=== PATIENT | male | born 1965 | race Caucasian/White ===

== ENCOUNTER 2016-05-04 17:32 | Emergency (ER) | payer MEDICARE ==
[~2016-05-04 17:32] MED LIST: AMLO2.5T PO; CLIN1CAP6 PO; HYDR-3534 PO; LANTUS2P SQ; LITH450T PO; METO25TA3 PO; NOVOLOGP2 SQ; OMEP40CA2 PO; PROZ20CA11 PO; RISP2TAB SL; SPIR25TA PO
[2016-05-04 17:34] VITALS: BP 146/83; PULSE 97; RESP 14; TEMP 99; O2SAT 98
[2016-05-04 17:58] VITALS: TEMP 100.3
[2016-05-05] MEDS ORDERED: LYRI75CA PO (08:11)
[2016-05-05] MEDS ORDERED: ADDE30TA PO (08:15)
[2016-05-05] MEDS ORDERED: FURO40TA PO (08:18)
== END 2016-05-04 22:22 | disposition left against medical advice (07) ==
LOC: NED 17:32
DX: M79.671 Pain in right foot (principal)
CPT/HCPCS: 99281

== ENCOUNTER 2016-05-05 06:12 | Inpatient (IN) | payer MEDICARE ==
[~2016-05-05] VITALS: Ht 177.8 cm; Wt 108.4 kg
[2016-05-05 06:13] VITALS: BP 128/83; PULSE 78; RESP 16; TEMP 97.7; O2SAT 96
[2016-05-05] MEDS ORDERED: LYRI75CA PO (08:11)
[2016-05-05] MEDS ORDERED: ADDE30TA PO (08:15)
[2016-05-05] MEDS ORDERED: FURO40TA PO (08:18)
[2016-05-05 08:25] VITALS: BP 113/75; PULSE 98; RESP 16
[2016-05-05] MEDS ORDERED: PIPERACIL-TAZO 4.5 GM PREMIX 100 ML IV STA (08:26)
[2016-05-05] MEDS ORDERED: SODIUM CHLOR 0.9% 1000 ML INJ 1,000 ML IV ONE (08:26)
[2016-05-05] MEDS ORDERED: VANCOMYCIN INJ 1,000 MG in SODIUM CHLOR 0.9% 250 ML INJ 250 ML IV STA (08:26)
[2016-05-05] MEDS ORDERED: IBUPROFEN 600 MG TAB PO ONE (08:30)
--- NOTE | 2016-05-05 08:31 | PD ---
HPI Chief Complaint: Skin Problem Time Seen by Provider: 08:26 Travel History International Travel<30 days: No Contact w/Intl Traveler<30days: No Traveled to known affect area: No History of Present Illness HPI 50-year-old male with history of diabetes, here for a sore on his right fifth toe that has been going on for 2 weeks, he states that it broke open spilling out bloody fluid last night. She denies any fevers, vomiting, or any other symptoms. Modifying Factors: None Associated Signs & Symptoms: Right toe wound, infection, pain for 2 weeks Risk Factors: Diabetic PFSH Past Medical History ADHD: Yes Depression: Yes Cardiovascular Problems: Yes (HTN) COPD: Yes Diabetes: Yes Patient Takes Glucophage: No Hypertension: Yes Immunizations Current: Yes Sleep Apnea: Yes (cpap) Influenza Vaccination: Yes Past Surgical History Tonsillectomy: Yes Social History Alcohol Use: No Tobacco Use: No Substance Use: No Allergies-Medications (Allergen,Severity, Reaction): Coded Allergies: *MDRO Multi-Drug Resistant Organism (Verified Adverse Reaction, Unknown, MRSA, 05/05/16) MRSA (lip wound) - 03/30/16 Reported Meds & Prescriptions Reported Meds & Active Scripts Active Reported Furosemide 40 Mg Tab 40 Mg PO BID Adderall (Amphetamine-Dextroamphetamine) 30 Mg Tab 30 Mg PO BID Avoid late evening doses. Space doses at least 4 to 6 hours if more than once/day dosing. Lyrica (Pregabalin) 75 Mg Cap 75 Mg PO BID Novolog Inj (Insulin Aspart) 1,000 Unit/10 Ml Vial 0 SQ DIRECTED Sliding Scale as directed. Lantus Inj (Insulin Glargine) 1,000 Unit/10 Ml Vial 50 Units SQ BID Risperidone M-Tab (Risperidone) 2 Mg Tab 2 Mg SL HS [place] Carbonate ER ([place] Carbonate) 450 Mg Tab 450 Mg PO BID Prozac (Fluoxetine HCl) 20 Mg Cap 60 Mg PO DAILY Omeprazole 40 Mg Cap 40 Mg PO DAILY Amlodipine (Amlodipine Besylate) 2.5 Mg Tab 2.5 Mg PO DAILY Spironolactone 25 Mg Tab 25 Mg PO DAILY Metoprolol Tartrate 25 Mg Tab 25 Mg PO DAILY Review of Systems Except as stated in HPI: all other systems reviewed are Neg Physical Exam Narrative GENERAL: Well-nourished, well-developed middle age white male patient in no acute distress. SKIN: Warm and dry. HEAD: Normocephalic. EYES: No scleral icterus. No injection or drainage. NECK: Supple, trachea midline. CARDIOVASCULAR: Regular rate and rhythm without murmurs, gallops, or rubs. RESPIRATORY: Breath sounds equal bilaterally. No accessory muscle use. GASTROINTESTINAL: Abdomen soft, non-tender, nondistended. MUSCULOSKELETAL: No cyanosis, or edema. BACK: Nontender without obvious deformity. No CVA tenderness. Right leg: There is a 2 cm area of erythema and 1 cm ulcerated lesion with surrounding edema at the lateral right foot toe, tender to palpation. There is also a area of 2 cm of erythema notable in the proximal part of the first toe. Mildly tender to palpation. There is notable erythema and edema of the right lower leg area, tender to palpation. Data Data Last Documented VS Vital Signs Date Time Temp Pulse Resp B/P Pulse Ox O2 Delivery O2 Flow Rate FiO2 05/05/16 08:25 98 16 113/75 Room Air 05/05/16 06:13 97.7 96 Orders Complete Blood Count With Diff (05/05/16 08:26) Comprehensive Metabolic Panel (05/05/16 08:26) Lactic Acid Sepsis Protocol (05/05/16 08:26) Blood Culture (05/05/16 08:26) Blood Glucose (05/05/16 08:26) Ecg Monitoring (05/05/16 08:26) Iv Access Insert/Monitor (05/05/16 08:26) Oximetry (05/05/16 08:26) Oxygen Administration (05/05/16 08:26) Ibuprofen (Motrin) (05/05/16 08:30) Piperacil-Tazo 4.5 Gm Premix (Zosyn 4.5 (05/05/16 08:26) Vancomycin Inj (Vancomycin Inj) (05/05/16 08:26) Sodium Chlor 0.9% 1000 Ml Inj (Ns 1000 M (05/05/16 08:26) Foot, Complete ([id number]) (05/05/16 08:26) Us Leg Venous Doppler (05/05/16 08:26) Labs Laboratory Tests Test 05/05/16 05/05/16 08:30 08:32 White Blood Count 12.1 TH/MM3 Red Blood Count 4.78 MIL/MM3 Hemoglobin 13.1 GM/DL Hematocrit 38.6 % Mean Corpuscular Volume 80.7 FL Mean Corpuscular Hemoglobin 27.5 PG Mean Corpuscular Hemoglobin 34.1 % Concent Red Cell Distribution Width 13.4 % Platelet Count 191 TH/MM3 Mean Platelet Volume 7.7 FL Neutrophils (%) (Auto) 81.0 % Lymphocytes (%) (Auto) 9.8 % Monocytes (%) (Auto) 8.5 % Eosinophils (%) (Auto) 0.5 % Basophils (%) (Auto) 0.2 % Neutrophils # (Auto) 9.8 TH/MM3 Lymphocytes # (Auto) 1.2 TH/MM3 Monocytes # (Auto) 1.0 TH/MM3 Eosinophils # (Auto) 0.1 TH/MM3 Basophils # (Auto) 0.0 TH/MM3 CBC Comment DIFF FINAL Differential Comment Sodium Level 134 MEQ/L Potassium Level 3.6 MEQ/L Chloride Level 97 MEQ/L Carbon Dioxide Level 30.1 MEQ/L Anion Gap 7 MEQ/L Blood Urea Nitrogen 9 MG/DL Creatinine 0.72 MG/DL Estimat Glomerular Filtration 115 ML/MIN Rate Random Glucose 217 MG/DL Calcium Level 8.5 MG/DL Total Bilirubin 0.5 MG/DL Aspartate Amino Transf 20 U/L (AST/SGOT) Alanine Aminotransferase 31 U/L (ALT/SGPT) Alkaline Phosphatase 130 U/L Total Protein 8.0 GM/DL Albumin 3.0 GM/DL Lactic Acid Level 1.1 mmol/L [facility] Medical Decision Making Medical Screen Exam Complete: Yes Emergency Medical Condition: Yes Medical Record Reviewed: Yes Interpretation(s) Laboratory Tests Test 05/05/16 08:30 White Blood Count 12.1 TH/MM3 (4.0-11.0) Hematocrit 38.6 % (39.0-51.0) Neutrophils (%) (Auto) 81.0 % (16.0-70.0) Monocytes (%) (Auto) 8.5 % (0.0-8.0) Neutrophils # (Auto) 9.8 TH/MM3 (1.8-7.7) Monocytes # (Auto) 1.0 TH/MM3 (0-0.9) Sodium Level 134 MEQ/L (136-145) Chloride Level 97 MEQ/L (98-107) Random Glucose 217 MG/DL (74-106) Alkaline Phosphatase 130 U/L (45-117) Albumin 3.0 GM/DL (3.4-5.0) Differential Diagnosis Right leg swelling, redness, pain, toe ulcerdiabetic foot versus cellulitis versus sepsis versus occult fracture versus DVT Narrative Course IV fluids and IV antibiotics were initiated after blood cultures were drawn. Ultrasound shows no signs of right leg DVT. X-ray was done to rule out osteomyelitis. At this point, my plan would be to admit the patient for further treatment. Patient qualifies for sepsis criteria based on elevated white blood cell count and heart rates as well as a known infected area. Case was discussed with Dr. Lennon for admission. Sepsis Criteria SIRS Criteria (2 or more): Heart rate over 90, WBC > 07894, < 4000 or > 10% bands Sepsis Criteria (SIRS+source): Infect source susp/known Criteria Outcome: Meets sepsis criteria Diagnosis Primary Impression: Cellulitis of right leg Additional Impression: SEPSIS, UNSPECIFIED ORGANISM Admitting Information Admitting Physician Requests: Admit Julio Cesar Kang MD May 05, 2016 08:31
[2016-05-05 08:44] LABS: AUTOMATED NEUTROPHIL # 9.8 TH/MM3 (1.8-7.7); BASOPHIL % 0.2 % (0.0-2.0); EOSINOPHIL # 0.1 TH/MM3 (0-0.4); EOSINOPHIL % 0.5 % (0.0-4.0); HEMATOCRIT 38.6 % (39.0-51.0); HEMO FLAGS DIFF FINAL; LYMPH % 9.8 % (9.0-44.0); LYMPHOCYTE # 1.2 TH/MM3 (1.0-4.8); MEAN CELL VOLUME 80.7 FL (80.0-100.0); MEAN CORPUSCULAR HEMOGLOBIN 27.5 PG (27.0-34.0); MEAN CORPUSCULAR HGB CONC 34.1 % (32.0-36.0); MONO % 8.5 % (0.0-8.0); PLATELET COUNT 191 TH/MM3 (150-450); RED BLOOD COUNT 4.78 MIL/MM3 (4.50-5.90); RED CELL DISTRIBUTION WIDTH 13.4 % (11.6-17.2); WHITE BLOOD COUNT 12.1 TH/MM3 (4.0-11.0)
[2016-05-05 09:00] LABS: ANION GAP 7 MEQ/L (5-15); AST (GOT) 20 U/L (15-37); BICARBONATE 30.1 MEQ/L (21.0-32.0); BLOOD UREA NITROGEN 9 MG/DL (7-18); CHLORIDE 97 MEQ/L (98-107); GLOMERULAR FILTRATION RATE 115 ML/MIN (>89); POTASSIUM 3.6 MEQ/L (3.5-5.1); SODIUM (NA) 134 MEQ/L (136-145)
[2016-05-05 09:04] LABS: ALKALINE PHOSPHATASE 130 U/L (45-117); ALT (GPT) 31 U/L (12-78); TOTAL BILIRUBIN ADULT 0.5 MG/DL (0.2-1.0)
--- NOTE | 2016-05-05 09:26 | RADRPT ---
EXAM DATE/TIME: 05/05/2016 08:48 [facility] COMPARISON: No previous studies available for comparison. INDICATIONS: Right foot swelling, infection in 5th digit. MEDICAL HISTORY: Diabetes mellitus type I. SURGICAL HISTORY: None. ENCOUNTER: Initial ACUITY: 2 weeks PAIN SCORE: 8/10 LOCATION: Right foot, 5th digit. FINDINGS: There is soft tissue swelling involving the right fifth digit. If there is clinical concern for oste omyelitis a contrast enhanced MRI of the toe/foot would be more sensitive in this patient. Degenerat flora changes are noted involving the right first metatarsal phalangeal joint. CONCLUSION: 1. Soft tissue swelling involving the right fifth digit suggestive of probable cellulitis. Underlyi ng osteomyelitis is difficult to rule out on the basis of this examination. MRI of the toe/foot with contrast would be more sensitive to rule out osteomyelitis if clinically indicated. 2. Degenerative changes involving the right first metatarsal phalangeal joint. Lane Brown MD on May 05, 2016 at 9:12 Board Certified Radiologist. This report was verified electronically.
--- NOTE | 2016-05-05 09:47 | RADRPT ---
EXAM DATE/TIME: 05/05/2016 08:53 [facility] COMPARISON: No previous studies available for comparison. INDICATIONS : Swelling in right lower extremity. MEDICAL HISTORY : Hypertension. COPD. Diabetes. Sleep apnea - CPAP. MRSA 2016. SURGICAL HISTORY : Tonsillectomy. ENCOUNTER: Initial ACUITY: 1 week PAIN SCORE: 8/10 LOCATION: Right leg. TECHNIQUE: Venous ultrasound of the leg was performed from the inguinal ligament to the proximal calf. Real-harry e, color Doppler and spectral tracing, compression and augmentation techniques were used. FINDINGS: There is normal compressibility of the deep venous system from the inguinal region to the proximal ca lf. No echogenic clot is seen in the lumen of the common femoral, femoral, popliteal, and posterior tibial veins. There is a normal response of the venous system to proximal and distal augmentation an d respiration. CONCLUSION: No evidence of deep venous thrombosis within the right lower extremity. Lane Brown MD on May 05, 2016 at 9:45 Board Certified Radiologist. This report was verified electronically.
[2016-05-05] MEDS ORDERED: ACETAMINOPHEN 325 MG TAB PO PRN (10:00)
[2016-05-05] MEDS ORDERED: ONDANSETRON HCL 4 MG/2 ML VIAL IVP PRN (10:00)
[2016-05-05] MEDS ORDERED: NALOXONE HCL 0.4 MG/ML AMP IV PRN (10:00)
[2016-05-05] MEDS ORDERED: SODIUM CHLORIDE 0.9% FLUSH 5 ML FLUSH FLUSH PRN (10:00)
[2016-05-05] MEDS ORDERED: PIPERACIL-TAZO 4.5 GM PREMIX 100 ML IV SCH (10:00)
--- NOTE | 2016-05-05 10:50 | HHI.HP ---
HPI Service [facility] Primary Care Physician Dr. Hernandez Admission Diagnosis sepsis/right leg cellulitis/diabetic foot ulcer Diagnoses: Chief Complaint: SORE TO RIGHT FIFTH TOE (Zulma Singh) Travel History International Travel<30 Days: No Contact w/Intl Traveler <30 Da: No Traveled to Known Affected Are: No (Zulma Singh) History of Present Illness This a pleasant 50-year-old male with past medical history of insulin-dependent diabetes, peripheral neuropathy, prior MRSA to a lip lesion on lip last year. Patient presented to the emergency room with history of having two blood filled blisters to the right foot, right great toe and right fifth toe. Indicates that the sore to the right great toe did heal, he did cut off some skin to this area after it healed. rs. The blister to the right fifth toe broke open yesterday and started draining bloody fluid, no odor. He had mild chills, no fevers. Noted that his right leg was swollen with increased redness all the way up to mid calf. No other symptoms such as chest pain, shortness of breath, abdominal pain, urinary symptoms, diarrhea. 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 He has severe peripheral neuropathy and has decreased sensation. Patient presented to the emergency room for evaluation, WBC was mildly elevated, 2.1. No fever. Blood glucose was elevated, 217. The rest of his laboratory workup was essentially unremarkable. Lactic acid 1.1. Ultrasound of the right leg was negative for DVT. X-ray of the right foot showed soft tissue swelling involving the right fifth digit suggestive of probable cellulitis, underlying osteomyelitis is difficult to rule out on the basis of this examination. MRI was recommended. Was noted with degenerative changes involving the right first metatarsal phalangeal joint. Cultures were obtained, patient was started on empiric antibiotics. Patient is admitted for further evaluation and treatment. (Zulma Singh) Review of Systems Constitutional: COMPLAINS OF: Chills, DENIES: Diaphoretic episodes, Fatigue, Fever, Weight gain, Weight loss, Dizziness, Change in appetite, Night Sweats Endocrine: DENIES: Heat/cold intolerance, Polydipsia, Polyuria, Polyphagia Eyes: DENIES: Blurred vision, Diplopia, Eye inflammation, Eye pain, Vision loss , Photosensitivity, Double Vision Ears, nose, mouth, throat: DENIES: Tinnitus, Hearing loss, Vertigo, Nasal discharge, Oral lesions, Throat pain, Hoarseness, Ear Pain, Running Nose, Epistaxis, Sinus Pain, Toothache, Odynophagia Respiratory: DENIES: Apneas, Cough, Snoring, Wheezing, Hemoptysis, Sputum production, Shortness of breath Cardiovascular: COMPLAINS OF: Lower Extremity Edema, DENIES: Chest pain, Palpitations, Syncope, Dyspnea on Exertion, PND, Orthopnea, Claudication Gastrointestinal: DENIES: Abdominal pain, Black stools, Bloody stools, Constipation, Diarrhea, Nausea, Vomiting, Difficulty Swallowing, Anorexia Genitourinary: DENIES: Sexual dysfunction, Urinary frequency, Urinary incontinence, Urgency, Hematuria, Dysuria, Nocturia, Penile Discharge, Testicular Pain, Testicular Swelling Musculoskeletal: COMPLAINS OF: Joint pain, Joint Swelling, DENIES: Muscle aches, Stiffness, Back pain, Neck pain Integumentary: DENIES: Abnormal pigmentation, Nail changes, Pruritus, Rash Hematologic/lymphatic: DENIES: Bruising, Lymphadenopathy Immunologic/allergic: DENIES: Eczema, Urticaria Neurologic: DENIES: Abnormal gait, Headache, Localized weakness, Paresthesias, Seizures, Speech Problems, Tremor, Poor Balance Psychiatric: DENIES: Anxiety, Confusion, Mood changes, Depression, Hallucinations, Agitation, Suicidal Ideation, Homicidal Ideation, Delusions ( Zulma Singh) Past Family Social History Past Medical History Insulin-dependent diabetes history of MRSA to lip lesion 2015 Hypertension Hyperlipidemia Obesity Bipolar disease ADHD Depression COPD Sleep apnea uses CPAP Peripheral neuropathy Injury to scalp 2015, table fell on head. Indicates that it was draining before, now healing. Did not seek medical attention. Past Surgical History Tonsillectomy Right shoulder arthroscopic surgery Reported Medications Reported Meds & Active Scripts Active Reported Furosemide 40 Mg Tab 40 Mg PO BID Adderall (Amphetamine-Dextroamphetamine) 30 Mg Tab 30 Mg PO BID Avoid late evening doses. Space doses at least 4 to 6 hours if more than once/day dosing. Lyrica (Pregabalin) 75 Mg Cap 75 Mg PO BID Novolog Inj (Insulin Aspart) 1,000 Unit/10 Ml Vial 0 SQ DIRECTED Sliding Scale as directed. Lantus Inj (Insulin Glargine) 1,000 Unit/10 Ml Vial 50 Units SQ BID Risperidone M-Tab (Risperidone) 2 Mg Tab 2 Mg SL HS [place] Carbonate ER ([place] Carbonate) 450 Mg Tab 450 Mg PO BID Prozac (Fluoxetine HCl) 20 Mg Cap 60 Mg PO DAILY Omeprazole 40 Mg Cap 40 Mg PO DAILY Amlodipine (Amlodipine Besylate) 2.5 Mg Tab 2.5 Mg PO DAILY Spironolactone 25 Mg Tab 25 Mg PO DAILY Metoprolol Tartrate 25 Mg Tab 25 Mg PO DAILY (Zulma Singh) Allergies: Coded Allergies: *MDRO Multi-Drug Resistant Organism (Verified Adverse Reaction, Unknown, MRSA, 05/05/16) MRSA (lip wound) - 03/30/16 Active Ordered Medications Inpatient Medications Acetaminophen (Tylenol) 650 mg Q4H PRN PO TEMP > 100.4; Start 05/05/16 at 10:00 Amlodipine Besylate (Norvasc) 2.5 mg DAILY PO ; Start 05/06/16 at 09:00 Amphetamine/ Dextroamphetamine (Adderall) 30 mg BID PO Last administered on 13:39; Start 05/05/16 at 13:00 Dextrose (D50w (Vial) Inj) 25 ml UNSCH PRN IV PUSH HYPOGLYCEMIA-SEE COMMENTS; Start 05/05/16 at 11:00 Fluoxetine HCl (PROzac) 60 mg DAILY PO Last administered on 05/05/16 11:27; Start 05/05/16 at 11:15 Furosemide (Lasix) 40 mg BID@09,18 PO Last administered on 05/05/16 11:27; Start 05/05/16 at 11:15 Glucagon (Glucagon Inj) 1 mg UNSCH PRN OTHER HYPOGLYCEMIA-SEE COMMENTS; Start 05/05/16 at 11:00 Heparin Sodium (Porcine) (Heparin Inj) 5,000 units Q12H SQ Last administered on 05/05/16 12:05; Start 05/05/16 at 10:00 Ibuprofen 600 mg 600 mg ONCE ONCE PO Last administered on 05/05/16 08:50; Start 05/05/16 at 08:30; Stop 05/05/16 at 08:31; Status DC Insulin Aspart (NovoLOG SUPPLEMENTAL SCALE) 1 ACHS SLIDING SCALE SQ ; Start 02/09 at 11:00 Insulin Detemir (Levemir Inj) 50 units BID SQ ; Start 05/05/16 at 21:00 IV Flush (NS Flush) 2 ml BID FLUSH ; Start 05/05/16 at 21:00 [place] Carbonate (Eskalith Sr) 450 mg BID PO ; Start 05/05/16 at 21:00 Metoprolol Tartrate (Lopressor) 25 mg DAILY PO ; Start 05/06/16 at 09:00 Miscellaneous Information SPECIFIC LAB TO BE KENTRELL... ONCE ONCE XX ; Start at 15:45; Stop 05/06/16 at 15:46 Naloxone HCl 0.4 mg 0.4 mg UNSCH PRN IV SEE LABEL COMMENTS; Start 05/05/16 at 10:00 Ondansetron HCl (Zofran Inj) 4 mg Q6H PRN IVP NAUSEA OR VOMITING; Start at 10:00 Pantoprazole Sodium (Protonix) 40 mg DAILY PO ; Start 05/06/16 at 09:00 Pharmacy Profile Note (Vancomycin Consult Pharmacy) 0 ml @ 0 mls/hr UNSCH OTHER ; Start 05/05/16 at 11:00 Piperacillin Sod/ Tazobactam Sod 100 ml @ 200 mls/hr Q6H IV Last administered on 05/05/16 15:13; Start 05/05/16 at 15:00 Pregabalin (Lyrica) 75 mg BID PO Last administered on 05/05/16 13:38; Start at 13:00 Risperidone (risperDAL M-TAB) 2 mg HS SL ; Start 05/05/16 at 21:00 Sodium Chloride (NS 1000 ml Inj) 1,000 ml @ 100 mls/hr Q10H IV Last administered on 05/05/16 11:28; Start 05/05/16 at 09:47 Spironolactone 25 mg 25 mg DAILY PO ; Start 05/06/16 at 09:00 Vancomycin HCl 1000 mg/Sodium Chloride 250 ml @ 250 mls/hr ONCE STAT IV Last administered on 05/05/16 10:09; Start 05/05/16 at 08:26; Stop 05/05/16 at 09:25 ; Status DC Vancomycin HCl/ Sodium Chloride (Vancomycin Inj/ NS 500 ml Inj) 520 ml @ 250 mls/hr Q12H IV ; Start 05/05/16 at 16:00 Family History Reviewed, noncontributory Social History Patient lives with sister, has grown children. Currently he is not working. He quit smoking and drinking in 2009. No substance abuse. (Zulma Singh ) Physical Exam Vital Signs Vital Signs Date Time Temp Pulse Resp B/P Pulse Ox O2 Delivery O2 Flow Rate FiO2 05/05/16 08:25 98 16 113/75 Room Air 05/05/16 06:13 97.7 78 16 128/83 96 Room Air Physical Exam GENERAL: This is a well-nourished, well-developed patient, in no apparent distress. SKIN: has a reddened patch to top of scalp from previous injury that is dry, healing well, no exudate. HEAD: Atraumatic. Normocephalic. No temporal or scalp tenderness. EYES: Pupils equal round and reactive. Extraocular motions intact. No scleral icterus. No injection or drainage. ENT: Nose without bleeding, purulent drainage or septal hematoma. Throat without erythema, tonsillar hypertrophy or exudate. Uvula midline. Airway patent. NECK: Trachea midline. No JVD or lymphadenopathy. Supple, nontender, no meningeal signs. CARDIOVASCULAR: Regular rate and rhythm without murmurs, gallops, or rubs. RESPIRATORY: Clear to auscultation. Breath sounds equal bilaterally. No wheezes , rales, or rhonchi. GASTROINTESTINAL: Abdomen soft, non-tender, bulky. Has umbilical and upper mid abdomen hernias, non tender. No hepato-splenomegaly, or palpable masses. No guarding. MUSCULOSKELETAL: Right leg with edema +1 and erythema up to mid calf, warm, tender to palpation. There is a 2 cm area of erythema and 1 cm ulcerated lesion with surrounding edema at the lateral right foot toe, tender to palpation. There is also a area of 2 cm of erythema notable in the proximal part of the first toe. Mildly tender to palpation. Left foot/leg with chronic venous discoloration, pedal pulses 1+ bilaterally No other joint tenderness, effusion, or edema noted. No calf tenderness. Negative Homans sign bilaterally. NEUROLOGICAL: Pt awake, oriented x 3. No focal deficits. Decrease sensation to both feet. Laboratory Laboratory Tests Test 05/05/16 05/05/16 08:30 08:32 White Blood Count 12.1 Red Blood Count 4.78 Hemoglobin 13.1 Hematocrit 38.6 Mean Corpuscular Volume 80.7 Mean Corpuscular Hemoglobin 27.5 Mean Corpuscular Hemoglobin 34.1 Concent Red Cell Distribution Width 13.4 Platelet Count 191 Mean Platelet Volume 7.7 Neutrophils (%) (Auto) 81.0 Lymphocytes (%) (Auto) 9.8 Monocytes (%) (Auto) 8.5 Eosinophils (%) (Auto) 0.5 Basophils (%) (Auto) 0.2 Neutrophils # (Auto) 9.8 Lymphocytes # (Auto) 1.2 Monocytes # (Auto) 1.0 Eosinophils # (Auto) 0.1 Basophils # (Auto) 0.0 CBC Comment DIFF FINAL Differential Comment Sodium Level 134 Potassium Level 3.6 Chloride Level 97 Carbon Dioxide Level 30.1 Anion Gap 7 Blood Urea Nitrogen 9 Creatinine 0.72 Estimat Glomerular Filtration 115 Rate Random Glucose 217 Calcium Level 8.5 Total Bilirubin 0.5 Aspartate Amino Transf 20 (AST/SGOT) Alanine Aminotransferase 31 (ALT/SGPT) Alkaline Phosphatase 130 Total Protein 8.0 Albumin 3.0 Lactic Acid Level 1.1 Date/Time Procedure Status Source Growth 05/05/16 08:35 Aerobic Blood Culture Received Blood Peripheral Pending 05/05/16 08:35 Anaerobic Blood Culture Received Blood Peripheral Pending (Zulma SinghP) Result Diagram: 05/05/16 0830 05/05/16 0830 Assessment and Plan Problem List: (1) Cellulitis of fifth toe of right foot (2) Cellulitis of right leg (3) Hyperglycemia due to type 2 diabetes mellitus (4) Hx MRSA infection (5) Hyperlipidemia (6) Peripheral neuropathy (7) Hypertension (8) Bipolar disorder Assessment and Plan Admit to Dr. Lennon 50-year-old male with significant past medical history of type 2 diabetes, hyperglycemia, peripheral neuropathy, history of MRSA. Patient came to emergency room complaining of a blood-filled blister to the right fifth toe that he's had for the last 2 weeks that opened up and has been draining, positive for chills, no fever. Prior history of MRSA to lip in 2016. -Continue with Zosyn, vancomycin Pharmacy consultation for vancomycin dosing Consult podiatry for evaluation Right foot MRI to rule out osteomyelitis Continue to follow cultures Insulin-dependent diabetes, uncontrolled, likely secondary to infection Accu-Cheks before meals and at bedtime with insulin therapy as needed Resume Lantus 50 units subcutaneous twice a day Peripheral neuropathy Resume Lyrica Hypertension, stable Resume home meds Hyperlipidemia -Resume home meds History of bipolar disease and ADHD, stable Continue home medication COPD, stable Monitor, DuoNeb's when necessary for wheezing Sleep apnea, uses CPAP Patient may use CPAP from home Home medications reviewed, initiated as indicated SCDs for DVT prophylaxis Plan of care has been discussed with the patient, attending, and registered nurse. Further management of the patient will be dependent on the hospital course This patient was seen by myself and Dr. Lennon, this H&P is written on his behalf (Zulma Singh) Assessment and Plan pt seen and examined as above this am chart was reviewed this am meds labs and rad data was reviewed notes were reviewed plan of care dw mayank dw pt and rn (Jl Lennon MD) Physician Certification 2 Midnight Certification Type: Admission for Inpatient Services Order for Inpatient Services The services are ordered in accordance with Medicare regulations or non- Medicare payer requirements, as applicable. In the case of services not specified as inpatient-only, they are appropriately provided as inpatient services in accordance with the 2-midnight benchmark. Estimated LOS (days): 2 2 days is the estimated time the patient will need to remain in the hospital, assuming treatment plan goals are met and no additional complications. 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
[2016-05-05 11:00] VITALS: BP 112/62; PULSE 84; RESP 14; O2SAT 97
[2016-05-05] MEDS: INSULIN ASPART SUPPLEMENTAL SCALE SQ SCH ×3 (11:00→21:03)
[2016-05-05] MEDS ORDERED: Vancomycin Consult Pharmacy 1 EA OTHER SCH (11:00)
[2016-05-05] MEDS ORDERED: GLUCAGON 1 MG/ML VIAL OTHER PRN (11:00)
[2016-05-05] MEDS ORDERED: DEXTROSE 50% IN WATER 50 ML VIAL(D50) IV PUSH PRN (11:00)
[2016-05-05] MEDS: FUROSEMIDE 40 MG TAB PO SCH ×2 (11:27→17:58)
[2016-05-05] MEDS: FLUoxetine HCL 20 MG CAP PO SCH (11:27)
[2016-05-05] MEDS: SODIUM CHLOR 0.9% 1000 ML INJ 1,000 ML IV SCH ×2 (11:28→21:51)
[2016-05-05] MEDS: HEPARIN SODIUM - SQ 10,000 UNITS/ML VIAL SQ SCH ×2 (12:05→23:49)
[2016-05-05] MEDS ORDERED: GADODIAMIDE PF 287 MG/ML 5 ML VIAL (for RAD MRI) IV ONE (12:47)
--- NOTE | 2016-05-05 13:15 | RADRPT ---
EXAM DATE/TIME: 05/05/2016 12:17 [facility] COMPARISON: No previous studies available for comparison. INDICATIONS : Osteomyelitis. Wound on 5th digit and medial base of the 1st. CONTRAST: 23 cc Omniscan (gadodiamide) IV MEDICAL HISTORY : Diabetes mellitus type 2. Hypertension. SURGICAL HISTORY : None. ENCOUNTER: Initial ACUITY: 3 day PAIN SCORE: 4/10 LOCATION: Right Foot TECHNIQUE: Multiplanar, multisequence MRI examination was performed without contrast and after the intravenous a dministration of gadolinium. FINDINGS: BONE/CARTILAGE: There is increased T2 and decreased T1 signal identified within the marrow of the fifth digit involvi ng both the proximal and distal phalanx. This also demonstrates enhancement after the administration of contrast. The axial images demonstrate adjacent soft tissue edema and enhancement within the area of focal cortical disruption involving the dorsal aspect of the proximal phalanx best seen on series 7 image 17. These findings are concerning for focal area of osteomyelitis. There is no similar findin g with respect to the first digit. There is diffuse soft tissue edema identified along the dorsal and plantar surface of the foot. TENDONS: All of the visualized tendons are intact. MISCELLANEOUS: Plantar aponeurosis is intact. Sinus tarsi is within normal limits. POST-CONTRAST: Abnormal enhancement of the fifth digit proximal and distal phalanx as well as surrounding enhancemen t of the soft tissues consistent with infection. CONCLUSION: Findings concerning for osteomyelitis involving the fifth digit proximal phalanx given the focal area of suggested cortical disruption. The enhancement seen within the distal phalanx is likely reactive. No evidence of osteomyelitis involving the first digit. Emily Noland MD on May 05, 2016 at 13:07 Board Certified Radiologist. This report was verified electronically.
[2016-05-05] MEDS: PREGABALIN 75 MG CAP PO SCH ×2 (13:38→21:52)
[2016-05-05] MEDS: DEXTROAMPHETAMINE/AMPHETAMINE 30 MG TAB PO SCH ×2 (13:39→21:52)
[2016-05-05 15:00] VITALS: BP 116/67; PULSE 82; RESP 16; O2SAT 97
[2016-05-05] MEDS: PIPERACIL-TAZO 4.5 GM PREMIX 100 ML IV SCH ×2 (15:13→21:51)
[2016-05-05] MEDS ORDERED: RESP: ALBUTEROL 2.5 MG/IPRATROPIUM 0.5 MG NEB (PRN) NEB (16:00)
[2016-05-05] MEDS: VANCOMYCIN INJ 2,000 MG in SODIUM CHLORID 0.9% 500 ML INJ 500 ML IV SCH (16:45)
[2016-05-05 17:59] VITALS: BP 123/95; PULSE 87; RESP 20; O2SAT 98
[2016-05-05 19:30] VITALS: BP 130/70; PULSE 89; RESP 16; O2SAT 98
--- NOTE | 2016-05-05 20:21 | MB ---
cc: BAILEY SANTIAGO DPM DATE OF CONSULTATION 05/05/16 CHIEF COMPLAINT Right foot ulceration and suspicion for osteomyelitis. HISTORY OF PRESENT ILLNESS Mr. Dillard is a 50-year old insulin dependent diabetic patient who moved here recently from [place]. The patient states that he had two blood blisters in early March, one on the hallux and one on the fifth digit, both on the right foot. Neither of them were causing him any concern until approximately April 17 when the right blood blister began to drain some serous fluid and then on he noticed increasing swelling and erythema. His sister is a nurse and encouraged him to come to the emergency department. The patient states that he had a new patient appointment with a primary care physician in the area on but was afraid this would be too long to wait. He denies any nausea, vomiting, fever, headaches, chills, shortness of breath. He does have diabetic neuropathy which he takes Lyrica for, but states he is having increased pain since this infection has begun. PAST MEDICAL HISTORY 1. Insulin dependent diabetes mellitus, 2. Peripheral neuropathy 3. MRSA history 4. Hypertension, 5. Hyperlipidemia, 6. Obesity, 7. Bipolar disorder, 8. ADHD, 9. Depression, 10. COPD, 11. Sleep apnea 12. Scalp injury in March 02, 2016 PAST SURGICAL HISTORY 1. Tonsillectomy 2. Right shoulder arthroscopic surgery. MEDICATIONS Please see list. ALLERGIES NO KNOWN DRUG ALLERGIES. FAMILY HISTORY noncontributory. SOCIAL HISTORY The patient lives with his sister. He is currently unemployed. He denies any alcohol or drug abuse. VITAL SIGNS: Temperature is 97.7 which is also T max, pulse was 87, respiratory rate 20, blood pressure 123/95, pulse ox 98% O2 on room air. LABORATORY DATA White count 12.1, hemoglobin 13.1, hematocrit 38.6, platelets 191. Sodium 134, potassium 3.7, chloride 97 and carbon dioxide 30.1, BUN nine, creatinine 0.70. Random glucose 217. Blood cultures and wound cultures are pending. IMAGING STUDIES X-rays negative for any gas in the soft tissue or cortical erosion, but MRI did show strong suspicion of osteomyelitis at the proximal phalanx of the fifth digit. PHYSICAL EXAMINATION On physical exam, the patient has bilateral lower extremity induration. However, he does have palpable DP and PT pulses. Cap fill time less than three seconds. Gross sensation is diminished. Biomechanical exam is within normal limits. Left foot is unremarkable. The right foot has a pre-ulcerative lesion on the medial aspect of the first metatarsal head and a small dry eschar on the distal aspect of the medial hallux. The lateral aspect of the fifth digit has a 0.7 x 0.7 x 0.3 ulceration with a granular wound bed, serous drainage and erythema extending to the mid foot, pain with palpation, no malodor. ASSESSMENT/PLAN 1)Right foot ulceration with cellulitis and osteomyelitis of the fifth digit. -I spoke to the patient about all treatment options. The patient has elected for surgical amputation of this time. He does not feel that IV antibiotics are ideal for him and, after reviewing all the pros and cons. I explained to the patient that given that he has good circulation he has a good chance of healing the amputation. However, at this time he is still too swollen and the cellulitis is too severe to allow for an ideal surgical environment. I would like an additional 24 hours of antibiotics to be provided. We will plan for surgical intervention on the May 07. -Please continue IV antibiotics. N.p.o. after 8:00 a.m. on May 07. -Consent was signed. Procedure was explained. No guarantees were given. -Dressing change orders provided for nursing staff. -Weight bear as tolerated and surgical shoe. Thank you this consultation. Bailey CROCKER /7:24 PM /8:09 PM [facility]
[2016-05-05] MEDS: INSULIN DETEMIR 100 UNITS/ML VIAL SQ SCH (21:02)
[2016-05-05] MEDS: oxyCODONE/ACETAMINOPHEN 5 MG/325 MG TAB PO PRN (21:04)
[2016-05-05] MEDS: SODIUM CHLORIDE 0.9% FLUSH 5 ML FLUSH FLUSH SCH (21:51)
[2016-05-05] MEDS: risperiDONE ODT 2 MG TAB SL SCH (21:52)
[2016-05-05] MEDS: LITHIUM CARBONATE 450 MG CONTROLLED RELEASE TAB PO SCH (21:52)
[2016-05-06] VITALS: BP 117/60; PULSE 80; RESP 16; O2SAT 93
[2016-05-06] MEDS: MUPIROCIN 2% OINT 22 GM TUBE TOPICAL SCH ×3 (01:17→22:14)
[2016-05-06] MEDS: PIPERACIL-TAZO 4.5 GM PREMIX 100 ML IV SCH ×4 (02:20→22:07)
[2016-05-06] MEDS: VANCOMYCIN INJ 2,000 MG in SODIUM CHLORID 0.9% 500 ML INJ 500 ML IV SCH ×2 (03:35→17:27)
[2016-05-06 04:00] VITALS: BP 113/71; PULSE 78; RESP 16; O2SAT 97
[2016-05-06 04:30] LABS: AUTOMATED NEUTROPHIL # 4.1 TH/MM3 (1.8-7.7); BASOPHIL % 0.3 % (0.0-2.0); EOSINOPHIL # 0.1 TH/MM3 (0-0.4); EOSINOPHIL % 1.6 % (0.0-4.0); HEMATOCRIT 38.5 % (39.0-51.0); HEMO FLAGS DIFF FINAL; LYMPH % 23.3 % (9.0-44.0); LYMPHOCYTE # 1.5 TH/MM3 (1.0-4.8); MEAN CELL VOLUME 81.6 FL (80.0-100.0); MEAN CORPUSCULAR HEMOGLOBIN 27.6 PG (27.0-34.0); MEAN CORPUSCULAR HGB CONC 33.8 % (32.0-36.0); NEUT % 61.8 % (16.0-70.0); PLATELET COUNT 193 TH/MM3 (150-450); RED BLOOD COUNT 4.72 MIL/MM3 (4.50-5.90); RED CELL DISTRIBUTION WIDTH 13.5 % (11.6-17.2); WHITE BLOOD COUNT 6.6 TH/MM3 (4.0-11.0)
[2016-05-06 05:11] LABS: BICARBONATE 32.1 MEQ/L (21.0-32.0); POTASSIUM 4.1 MEQ/L (3.5-5.1)
[2016-05-06] MEDS: SODIUM CHLOR 0.9% 1000 ML INJ 1,000 ML IV SCH (05:47)
[2016-05-06] MEDS: INSULIN ASPART SUPPLEMENTAL SCALE SQ SCH ×4 (07:00→21:00)
[2016-05-06 08:00] VITALS: BP 116/70; PULSE 88; RESP 20; TEMP 98; O2SAT 98
[2016-05-06] MEDS ORDERED: METH40TA PO (09:00)
[2016-05-06] MEDS: PANTOPRAZOLE SOD 40 MG DELAYED RELEASE TAB PO SCH (09:28)
[2016-05-06] MEDS: FUROSEMIDE 40 MG TAB PO SCH ×2 (09:28→17:13)
[2016-05-06] MEDS: amLODIPine BESYLATE 5 MG TAB PO SCH (09:28)
[2016-05-06] MEDS: INSULIN DETEMIR 100 UNITS/ML VIAL SQ SCH ×2 (09:29→22:08)
[2016-05-06] MEDS: SPIRONOLACTONE 25 MG TAB PO SCH (09:31)
[2016-05-06] MEDS: METOPROLOL TARTRATE 25 MG TAB PO SCH (09:34)
[2016-05-06] MEDS: oxyCODONE/ACETAMINOPHEN 5 MG/325 MG TAB PO PRN ×3 (09:35→22:08)
[2016-05-06] MEDS: SODIUM CHLORIDE 0.9% FLUSH 5 ML FLUSH FLUSH SCH ×2 (09:37→21:00)
[2016-05-06] MEDS: DEXTROAMPHETAMINE/AMPHETAMINE 30 MG TAB PO SCH ×2 (10:41→23:03)
[2016-05-06] MEDS: LITHIUM CARBONATE 450 MG CONTROLLED RELEASE TAB PO SCH ×2 (10:42→22:06)
[2016-05-06] MEDS: FLUoxetine HCL 20 MG CAP PO SCH (10:42)
[2016-05-06] MEDS: PREGABALIN 75 MG CAP PO SCH ×2 (10:43→23:03)
[2016-05-06] MEDS: HEPARIN SODIUM - SQ 10,000 UNITS/ML VIAL SQ SCH ×2 (10:45→22:09)
[2016-05-06 13:02] VITALS: BP 139/82; PULSE 85; RESP 25; TEMP 97.8; O2SAT 99
[2016-05-06] MEDS ORDERED: PHARMACY ORDERED LAB XX ONE (15:45)
--- NOTE | 2016-05-06 16:07 | HHI.PR ---
Subjective Remarks right tungsten tender erythema unchanged no cp no sob no fever will be going to OR tomorrow for toe amputation, doesn't want to do abx for 6 weeks states he takes Methadone and would it restarted Objective Objective Results - Vital Signs Date Time Temp Pulse Resp B/P Pulse Ox O2 Delivery O2 Flow Rate FiO2 05/06/16 13:02 97.8 85 25 139/82 99 05/06/16 11:19 20 05/06/16 11:19 20 05/06/16 08:00 98.0 88 20 116/70 98 05/06/16 04:00 78 16 113/71 97 Room Air 05/06/16 00:00 80 16 117/60 93 Room Air 05/05/16 19:30 89 16 130/70 98 Room Air 05/05/16 17:59 87 20 123/95 98 Room Air Result Diagram: 05/06/16 0408 05/06/16 0408 Other Results Laboratory Tests Test 05/06/16 04:08 White Blood Count 6.6 Red Blood Count 4.72 Hemoglobin 13.0 Hematocrit 38.5 Mean Corpuscular Volume 81.6 Mean Corpuscular Hemoglobin 27.6 Mean Corpuscular Hemoglobin 33.8 Concent Red Cell Distribution Width 13.5 Platelet Count 193 Mean Platelet Volume 7.5 Neutrophils (%) (Auto) 61.8 Lymphocytes (%) (Auto) 23.3 Monocytes (%) (Auto) 13.0 Eosinophils (%) (Auto) 1.6 Basophils (%) (Auto) 0.3 Neutrophils # (Auto) 4.1 Lymphocytes # (Auto) 1.5 Monocytes # (Auto) 0.9 Eosinophils # (Auto) 0.1 Basophils # (Auto) 0.0 CBC Comment DIFF FINAL Differential Comment Sodium Level 138 Potassium Level 4.1 Chloride Level 101 Carbon Dioxide Level 32.1 Anion Gap 5 Blood Urea Nitrogen 9 Creatinine 0.67 Estimat Glomerular Filtration 125 Rate Random Glucose 134 Calcium Level 8.2 Date/Time Procedure Status Source Growth 05/05/16 08:35 Aerobic Blood Culture - Preliminary Resulted Blood Peripheral NO GROWTH IN 1 DAY 05/05/16 08:35 Anaerobic Blood Culture - Preliminary Resulted Blood Peripheral NO GROWTH IN 1 DAY ROS General: No: Fatigue, Weakness HEENT: No: Sore Throat, Dysphagia Cardiac: No: Chest Pain, Edema, Palpitations Pulmonary: No: Cough, SOB, Wheezing GI: No: Abdominal Pain, BM, Diarrhea, 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 SKIN: has a reddened patch to top of scalp from previous injury that is dry, healing well, no exudate. HEAD: Atraumatic. Normocephalic. No temporal or scalp tenderness. EYES: Pupils equal round and reactive. Extraocular motions intact. No scleral icterus. No injection or drainage. ENT: Nose without bleeding, purulent drainage or septal hematoma. Throat without erythema, tonsillar hypertrophy or exudate. Uvula midline. Airway patent. NECK: Trachea midline. No JVD or lymphadenopathy. Supple, nontender, no meningeal signs. CARDIOVASCULAR: Regular rate and rhythm without murmurs, gallops, or rubs. RESPIRATORY: Clear to auscultation. Breath sounds equal bilaterally. No wheezes , rales, or rhonchi. GASTROINTESTINAL: Abdomen soft, non-tender, bulky. Has umbilical and upper mid abdomen hernias, non tender. No hepato-splenomegaly, or palpable masses. No guarding. MUSCULOSKELETAL: Right leg with edema +1 and erythema up to mid calf, warm, tender to palpation. There is a 2 cm area of erythema and 1 cm ulcerated lesion with surrounding edema at the lateral right foot toe, tender to palpation. There is also a area of 2 cm of erythema notable in the proximal part of the first toe. Mildly tender to palpation. Left foot/leg with chronic venous discoloration, pedal pulses 1+ bilaterally No other joint tenderness, effusion, or edema noted. No calf tenderness. Negative Homans sign bilaterally. NEUROLOGICAL: Pt awake, oriented x 3. No focal deficits. Decrease sensation to both feet. Urinary Catheter: No Vascular Central Line Catheter: No A/P Diagnosis: (1) Cellulitis of fifth toe of right foot (2) Cellulitis of right leg (3) Hyperglycemia due to type 2 diabetes mellitus (4) Hx MRSA infection (5) Hyperlipidemia (6) Peripheral neuropathy (7) Hypertension (8) Bipolar disorder Assessment and Plan 50-year-old male with significant past medical history of type 2 diabetes, hyperglycemia, peripheral neuropathy, history of MRSA. Patient came to emergency room complaining of a blood-filled blister to the right fifth toe that he's had for the last 2 weeks that opened up and has been draining, positive for chills, no fever. Prior history of MRSA to lip in 2016. -Continue with Zosyn, vancomycin, follow cultures Pharmacy consultation for vancomycin dosing Appreciate podiatry input, options reviewed, pt. wants to proceed with amputation Right foot MRI results noted, + osteo Continue to follow cultures-negative so far -Contact isolation, hx MRSA -To OR on 05/07 for right foot fifth toe amputation Insulin-dependent diabetes, uncontrolled, likely secondary to infection- Accu-Cheks before meals and at bedtime with insulin therapy as needed Continue Lantus 50 units subcutaneous twice a day Peripheral neuropathy continue Lyrica Hypertension, stable continue home meds Hyperlipidemia -continue home meds History of bipolar disease and ADHD, stable Continue home medication COPD, stable Monitor, DuoNeb's when necessary for wheezing Sleep apnea, uses CPAP Patient may use CPAP from home Chronic pain -will verify Methadone and restart SCDs for DVT prophylaxis Continue with above tx To OR on 05/07 D/W RN D/W Dr. Lennon D/W pt. This patient was seen by myself and Dr. 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
[2016-05-06 16:21] VITALS: BP 104/63; PULSE 81; RESP 20; TEMP 98; O2SAT 96
--- NOTE | 2016-05-06 16:58 | PD.POD ---
Subjective Podiatric Problems Right 5th digit wound with cellulitis and osteomyletis. Pt is scheduled for an amputation tomorrow. He states the pain medication is not helping much, but also admits that he has been on methadone since the 1980s and did not say anything on admission because he didnt want to be judged. He denies any n/v/f/h/ c/sob. Pain score: 4 Past Med/Surg/Social History Social History Smoking Status: Former Smoker Objective Vital Signs Vital Signs Date Time Temp Pulse Resp B/P Pulse Ox O2 Delivery O2 Flow Rate FiO2 05/06/16 16:21 98.0 81 20 104/63 96 05/06/16 13:02 97.8 85 25 139/82 99 05/06/16 11:19 20 05/06/16 11:19 20 05/06/16 08:00 98.0 88 20 116/70 98 05/06/16 04:00 78 16 113/71 97 Room Air 05/06/16 00:00 80 16 117/60 93 Room Air 05/05/16 19:30 89 16 130/70 98 Room Air 05/05/16 17:59 87 20 123/95 98 Room Air Coded Allergies: *MDRO Multi-Drug Resistant Organism (Verified Adverse Reaction, Unknown, MRSA, 05/05/16) MRSA (lip wound) - 03/30/16 Exam-Podiatry Remarks Bilateral palpable DP and Pt pulses, LLE unremarkable. Right foot with pre- ulcerative lesions to the medial hallux and medial first met head. Ulcer to the lateral 5th digit 1.0 x 1.0 x 0.4cm, fibrogranular base and erythema extending to the mid foot, +edema. Gross sensation is severely diminished. Assessment & Plan A/P 1) right 5th digit stage III ulcer with OM and cellulitis -NPO after 8AM tomorrow, scheduled for amputation in the PM -consent signed -WBAT in surgical shoe -elevate right foot while at rest -call with any questions or concerns Bailey Santana DPM May 06, 2016 16:57
[2016-05-06] MEDS: METHADONE HCL 10 MG TAB PO SCH (17:12)
[2016-05-06] MEDS ORDERED: LACTATED RINGER'S 1000 ML IV SCH (18:15)
[2016-05-06] MEDS ORDERED: SODIUM CHLORID 0.9% 500 ML IV SCH (18:15)
[2016-05-06 20:10] VITALS: BP 106/65; PULSE 81; RESP 18; TEMP 97.5; O2SAT 96
[2016-05-06] MEDS: risperiDONE ODT 2 MG TAB SL SCH (23:05)
[2016-05-07 00:48] VITALS: BP 105/64; PULSE 88; RESP 18; TEMP 97.3; O2SAT 94
[2016-05-07] MEDS: VANCOMYCIN INJ 2,000 MG in SODIUM CHLORID 0.9% 500 ML INJ 500 ML IV SCH ×3 (04:17→16:17)
[2016-05-07] MEDS: PIPERACIL-TAZO 4.5 GM PREMIX 100 ML IV SCH ×5 (04:18→20:43)
[2016-05-07] MEDS: oxyCODONE/ACETAMINOPHEN 5 MG/325 MG TAB PO PRN ×2 (04:52→09:19)
[2016-05-07 05:06] VITALS: BP 101/61; PULSE 84; RESP 18; TEMP 97.2; O2SAT 96
[2016-05-07] MEDS: INSULIN ASPART SUPPLEMENTAL SCALE SQ SCH ×4 (05:41→21:00)
[2016-05-07 07:00] VITALS: BP 119/73; PULSE 80; RESP 18; TEMP 96.7; O2SAT 96
[2016-05-07] MEDS: INSULIN DETEMIR 100 UNITS/ML VIAL SQ SCH ×2 (09:00→20:43)
[2016-05-07] MEDS: DEXTROAMPHETAMINE/AMPHETAMINE 30 MG TAB PO SCH ×2 (09:14→20:43)
[2016-05-07] MEDS: amLODIPine BESYLATE 5 MG TAB PO SCH (09:14)
[2016-05-07] MEDS: FLUoxetine HCL 20 MG CAP PO SCH (09:14)
[2016-05-07] MEDS: LITHIUM CARBONATE 450 MG CONTROLLED RELEASE TAB PO SCH ×2 (09:14→20:42)
[2016-05-07] MEDS: FUROSEMIDE 40 MG TAB PO SCH ×2 (09:14→18:50)
[2016-05-07] MEDS: PREGABALIN 75 MG CAP PO SCH ×2 (09:14→20:43)
[2016-05-07] MEDS: PANTOPRAZOLE SOD 40 MG DELAYED RELEASE TAB PO SCH (09:14)
[2016-05-07] MEDS: METOPROLOL TARTRATE 25 MG TAB PO SCH (09:15)
[2016-05-07] MEDS: SPIRONOLACTONE 25 MG TAB PO SCH (09:15)
[2016-05-07] MEDS: SODIUM CHLORIDE 0.9% FLUSH 5 ML FLUSH FLUSH SCH ×2 (09:15→20:43)
[2016-05-07] MEDS: HEPARIN SODIUM - SQ 10,000 UNITS/ML VIAL SQ SCH ×2 (09:17→22:00)
[2016-05-07] MEDS: MUPIROCIN 2% OINT 22 GM TUBE TOPICAL SCH ×2 (09:17→21:00)
[2016-05-07] MEDS ORDERED: INFLUENZA VIRUS VACCINE (QUADRIVALENT) 0.5 ML SYR IM ONE (10:00)
[2016-05-07] MEDS ORDERED: PNEUMOCOCCAL POLYVALENT INJ 25 MCG/0.5 ML SYR IM ONE (10:00)
--- NOTE | 2016-05-07 10:17 | HHI.PR ---
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 improved no cp no sob no fever going to OR today Objective Objective Results - Vital Signs Date Time Temp Pulse Resp B/P Pulse Ox O2 Delivery O2 Flow Rate FiO2 05/07/16 07:00 96.7 80 18 119/73 96 05/07/16 05:06 97.2 84 18 101/61 96 05/07/16 00:48 97.3 88 18 105/64 94 05/06/16 20:10 97.5 81 18 106/65 96 05/06/16 16:21 98.0 81 20 104/63 96 05/06/16 13:02 97.8 85 25 139/82 99 05/06/16 11:19 20 05/06/16 11:19 20 I/O 05/06/16 05/06/16 05/06/16 05/07/16 05/07/16 05/07/16 07:00 15:00 23:00 07:00 15:00 23:00 Intake Total 480 ml 240 ml Balance 480 ml 240 ml Intake Oral 480 ml 240 ml # Voids 1 1 Result Diagram: 05/06/16 0408 05/06/16 0408 Other Results Laboratory Tests Test 05/06/16 15:45 Vancomycin Level Trough 11.3 Date/Time Procedure Status Source Growth 05/05/16 08:35 Aerobic Blood Culture - Preliminary Resulted Blood Peripheral NO GROWTH IN 1 DAY 05/05/16 08:35 Anaerobic Blood Culture - Preliminary Resulted Blood Peripheral NO GROWTH IN 1 DAY ROS General: No: Fatigue, Weakness HEENT: No: Sore Throat, Dysphagia Cardiac: Edema, No: Chest Pain, Palpitations, Other Pulmonary: No: Cough, SOB, Wheezing GI: No: Abdominal Pain, BM, Diarrhea, 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 SKIN: has a reddened patch to top of scalp from previous injury that is dry, healing well, no exudate. HEAD: Atraumatic. Normocephalic. No temporal or scalp tenderness. EYES: Pupils equal round and reactive. Extraocular motions intact. No scleral icterus. No injection or drainage. ENT: Nose without bleeding, purulent drainage or septal hematoma. Throat without erythema, tonsillar hypertrophy or exudate. Uvula midline. Airway patent. NECK: Trachea midline. No JVD or lymphadenopathy. Supple, nontender, no meningeal signs. CARDIOVASCULAR: Regular rate and rhythm without murmurs, gallops, or rubs. RESPIRATORY: Clear to auscultation. Breath sounds equal bilaterally. No wheezes , rales, or rhonchi. GASTROINTESTINAL: Abdomen soft, non-tender, bulky. Has umbilical and upper mid abdomen hernias, non tender. No hepato-splenomegaly, or palpable masses. No guarding. MUSCULOSKELETAL: Right leg with edema +1 and erythema up to mid calf, warm, tender to palpation. There is a 2 cm area of erythema and 1 cm ulcerated lesion with surrounding edema at the lateral right foot toe, tender to palpation. There is also a area of 2 cm of erythema notable in the proximal part of the first toe. Mildly tender to palpation. Left foot/leg with chronic venous discoloration, pedal pulses 1+ bilaterally No other joint tenderness, effusion, or edema noted. No calf tenderness. Negative Homans sign bilaterally. NEUROLOGICAL: Pt awake, oriented x 3. No focal deficits. Decrease sensation to both feet. Urinary Catheter: No Vascular Central Line Catheter: No A/P Diagnosis: (1) Cellulitis of fifth toe of right foot (2) Cellulitis of right leg (3) Hyperglycemia due to type 2 diabetes mellitus (4) Hx MRSA infection (5) Hyperlipidemia (6) Peripheral neuropathy (7) Hypertension (8) Bipolar disorder Assessment and Plan 50-year-old male with significant past medical history of type 2 diabetes, hyperglycemia, peripheral neuropathy, history of MRSA. Patient came to emergency room complaining of a blood-filled blister to the right fifth toe that he's had for the last 2 weeks that opened up and has been draining, positive for chills, no fever. Prior history of MRSA to lip in 2016. -Continue with Zosyn, vancomycin, follow cultures Pharmacy consultation for vancomycin dosing Appreciate podiatry input, options reviewed, pt. wants to proceed with amputation Right foot MRI results noted, + osteo Continue to follow cultures-negative so far -Contact isolation, hx MRSA -To OR today for right foot fifth toe amputation Insulin-dependent diabetes, uncontrolled, likely secondary to infection- Accu-Cheks before meals and at bedtime with insulin therapy as needed Continue Lantus 50 units subcutaneous twice a day Peripheral neuropathy continue Lyrica Hypertension, stable continue home meds Hyperlipidemia -continue home meds History of bipolar disease and ADHD, stable Continue home medication COPD, stable Monitor, DuoNeb's when necessary for wheezing Sleep apnea, uses CPAP Patient may use CPAP from home Chronic pain -will verify Methadone and restart SCDs for DVT prophylaxis Continue with above tx To OR today D/W RN D/W Dr. Lennon D/W pt. This patient was seen by myself and Dr. 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
--- NOTE | 2016-05-07 10:44 | EKG ---
Date Performed: 05/06/2016 Time Performed: 19:09:55 PTAGE: 50 years EKG: Sinus rhythm PROLONGED QT INTERVAL ABNORMAL ECG NO PREVIOUS TRACING DOCTOR: Melvin Brennan Interpretating Date/Time 05/07/2016 10:43:34
[2016-05-07 11:05] VITALS: BP 114/74; PULSE 86; RESP 18; TEMP 97.7; O2SAT 96
[2016-05-07] MEDS: SODIUM CHLOR 0.9% 1000 ML INJ 1,000 ML IV SCH ×2 (11:47→21:47)
[2016-05-07] MEDS ORDERED: ONDANSETRON HCL 4 MG/2 ML VIAL IV PUSH ONE (12:00)
[2016-05-07] MEDS ORDERED: PROPOFOL 200 MG/20 ML AMP IV ONE (12:00)
[2016-05-07] MEDS ORDERED: ONDANSETRON HCL 4 MG/2 ML VIAL IV PUSH PRN (14:00)
[2016-05-07] MEDS ORDERED: BUPIVACAINE HCL PF 0.5% 30 ML VIAL ONE (14:11)
[2016-05-07] MEDS ORDERED: PHARMACY ORDERED LAB XX ONE (15:45)
[2016-05-07] MEDS ORDERED: NEOMYCIN/POLYMYXIN 1 ML G.U. IRRIGANT IR ONE (16:18)
[2016-05-07] MEDS ORDERED: MIDAZOLAM HCL 2 MG/2 ML VIAL ONE (17:07)
[2016-05-07] MEDS ORDERED: fentaNYL CITRATE 250 MCG/5 ML AMP ONE (17:08)
--- NOTE | 2016-05-07 17:31 | RADRPT ---
EXAM DATE/TIME: 05/07/2016 17:06 [facility] COMPARISON: MRI FOOT RIGHT W & W/O CONTRAST, May 05, 2016, 12:17. FOOT RIGHT COMPLET E ([id number]), May 05, 2016, 8:48. INDICATIONS : Post op right foot. MEDICAL HISTORY : Hypertension. Diabetes mellitus type II. SURGICAL HISTORY : None. ENCOUNTER: Subsequent ACUITY: 2 days PAIN SCORE: 0/10 LOCATION: Right foot. FINDINGS: The patient is status post amputation of the fifth toe. Minimal soft tissue gas is pre sent. Alignment is anatomic. CONCLUSION: Amputation of the fifth toe. Dalton Kemp MD FACR on May 07, 2016 at 17:27 Board Certified Radiologist. This report was verified electronically.
[2016-05-07] MEDS ORDERED: DO NOT ADM ANY ANTICOAGULANT DRUGS XX PRN (18:15)
[2016-05-07] MEDS: METHADONE HCL 10 MG TAB PO SCH (18:50)
[2016-05-07 20:00] VITALS: BP 109/77; PULSE 122; RESP 18; TEMP 97.4; O2SAT 96
[2016-05-07] MEDS: risperiDONE ODT 2 MG TAB SL SCH (20:43)
[2016-05-08] VITALS: BP 107/66; PULSE 75; RESP 16; TEMP 96.6; O2SAT 92
[2016-05-08] MEDS: PIPERACIL-TAZO 4.5 GM PREMIX 100 ML IV SCH ×4 (02:49→20:22)
[2016-05-08] MEDS: oxyCODONE/ACETAMINOPHEN 5 MG/325 MG TAB PO PRN ×3 (02:54→15:26)
[2016-05-08] MEDS ORDERED: PHARMACY ORDERED LAB XX ONE (03:45)
[2016-05-08] MEDS: VANCOMYCIN INJ 2,000 MG in SODIUM CHLORID 0.9% 500 ML INJ 500 ML IV SCH ×2 (04:00→16:50)
[2016-05-08 04:25] VITALS: BP 101/72; PULSE 77; RESP 16; TEMP 96.7; O2SAT 99
[2016-05-08] MEDS: INSULIN ASPART SUPPLEMENTAL SCALE SQ SCH ×4 (04:54→20:24)
[2016-05-08 08:00] VITALS: BP 95/69; PULSE 79; RESP 18; TEMP 97.7; O2SAT 96
[2016-05-08] MEDS: PREGABALIN 75 MG CAP PO SCH ×2 (08:38→20:23)
[2016-05-08] MEDS: SODIUM CHLORIDE 0.9% FLUSH 5 ML FLUSH FLUSH SCH ×2 (08:39→20:23)
[2016-05-08] MEDS: DEXTROAMPHETAMINE/AMPHETAMINE 30 MG TAB PO SCH ×2 (08:39→20:22)
[2016-05-08] MEDS: SPIRONOLACTONE 25 MG TAB PO SCH (08:40)
[2016-05-08] MEDS: LITHIUM CARBONATE 450 MG CONTROLLED RELEASE TAB PO SCH ×2 (08:41→20:23)
[2016-05-08] MEDS: PANTOPRAZOLE SOD 40 MG DELAYED RELEASE TAB PO SCH (08:41)
[2016-05-08] MEDS: FLUoxetine HCL 20 MG CAP PO SCH (08:42)
[2016-05-08] MEDS: amLODIPine BESYLATE 5 MG TAB PO SCH (08:44)
[2016-05-08] MEDS: FUROSEMIDE 40 MG TAB PO SCH ×2 (08:44→17:34)
[2016-05-08] MEDS: METOPROLOL TARTRATE 25 MG TAB PO SCH (08:44)
[2016-05-08] MEDS: MUPIROCIN 2% OINT 22 GM TUBE TOPICAL SCH ×2 (08:45→20:23)
[2016-05-08] MEDS: INSULIN DETEMIR 100 UNITS/ML VIAL SQ SCH ×2 (08:45→20:24)
[2016-05-08] MEDS: SODIUM CHLOR 0.9% 1000 ML INJ 1,000 ML IV SCH ×2 (08:46→17:34)
--- NOTE | 2016-05-08 09:15 | HHI.PR ---
Subjective Remarks s/p right fifth toe amputation 05/07 doing well minimal pain minimal erythema no fever no cp no sob anxious to go home Objective Objective Results - Vital Signs Date Time Temp Pulse Resp B/P Pulse Ox O2 Delivery O2 Flow Rate FiO2 05/08/16 08:00 97.7 79 18 95/69 96 05/08/16 04:25 96.7 77 16 101/72 99 05/08/16 00:00 96.6 75 16 107/66 92 05/07/16 20:00 97.4 122 18 109/77 96 05/07/16 18:15 97.5 70 14 115/75 98 Nasal Cannula 2 05/07/16 18:00 86 14 112/82 98 Nasal Cannula 2 05/07/16 17:45 88 14 113/82 98 Nasal Cannula 2 05/07/16 17:30 80 14 110/62 97 Nasal Cannula 2 05/07/16 17:15 86 14 118/77 96 Nasal Cannula 2 05/07/16 17:03 97.5 70 14 122/75 97 Nasal Cannula 2 05/07/16 11:05 97.7 86 18 114/74 96 05/07/16 10:24 18 05/07/16 10:24 18 I/O 05/07/16 05/07/16 05/07/16 05/08/16 05/08/16 05/08/16 07:00 15:00 23:00 07:00 15:00 23:00 Intake Total 240 ml 800 ml 960 ml Output Total 10 ml Balance 240 ml 790 ml 960 ml Intake Oral 240 ml 400 ml 500 ml IV Total 460 ml Other 400 ml Output Estimated Blood Loss 10 ml # Voids 1 1 1 1 # Bowel Movements 0 0 Result Diagram: 05/06/16 0408 05/06/16 0408 Other Results Laboratory Tests Test 05/08/16 03:30 Vancomycin Level Trough 13.2 Date/Time Procedure Status Source Growth 05/05/16 08:35 Aerobic Blood Culture - Preliminary Resulted Blood Peripheral NO GROWTH IN 2 DAYS 05/05/16 08:35 Anaerobic Blood Culture - Preliminary Resulted Blood Peripheral NO GROWTH IN 2 DAYS ROS General: No: Fatigue, Weakness HEENT: No: Sore Throat, Dysphagia Cardiac: No: Chest Pain, Edema, Palpitations Pulmonary: No: Cough, SOB, Wheezing GI: No: Abdominal Pain, BM, Diarrhea, 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 SKIN: has a reddened patch to top of scalp from previous injury that is dry, healing well, no exudate. HEAD: Atraumatic. Normocephalic. No temporal or scalp tenderness. EYES: Pupils equal round and reactive. Extraocular motions intact. No scleral icterus. No injection or drainage. ENT: Nose without bleeding, purulent drainage or septal hematoma. Throat without erythema, tonsillar hypertrophy or exudate. Uvula midline. Airway patent. NECK: Trachea midline. No JVD or lymphadenopathy. Supple, nontender, no meningeal signs. CARDIOVASCULAR: Regular rate and rhythm without murmurs, gallops, or rubs. RESPIRATORY: Clear to auscultation. Breath sounds equal bilaterally. No wheezes , rales, or rhonchi. GASTROINTESTINAL: Abdomen soft, non-tender, bulky. Has umbilical and upper mid abdomen hernias, non tender. No hepato-splenomegaly, or palpable masses. No guarding. MUSCULOSKELETAL: Right foot with dressing D/I, skin warm and dry. Left foot/ leg with chronic venous discoloration, pedal pulses 1+ bilaterally No other joint tenderness, effusion, or edema noted. No calf tenderness. Negative Homans sign bilaterally. NEUROLOGICAL: Pt awake, oriented x 3. No focal deficits. Decrease sensation to both feet. Urinary Catheter: No Vascular Central Line Catheter: No A/P Diagnosis: (1) Cellulitis of fifth toe of right foot (2) Cellulitis of right leg (3) Hyperglycemia due to type 2 diabetes mellitus (4) Hx MRSA infection (5) Hyperlipidemia (6) Peripheral neuropathy (7) Hypertension (8) Bipolar disorder Assessment and Plan 50-year-old male with significant past medical history of type 2 diabetes, hyperglycemia, peripheral neuropathy, history of MRSA. Patient came to emergency room complaining of a blood-filled blister to the right fifth toe that he's had for the last 2 weeks that opened up and has been draining, positive for chills, no fever. Prior history of MRSA to lip in 2016. -Continue with Zosyn, vancomycin, follow cultures Pharmacy consultation for vancomycin dosing Appreciate podiatry input, options reviewed, pt. wants to proceed with amputation Right foot MRI results noted, + osteo Continue to follow cultures-negative so far -Contact isolation, hx MRSA -S/P right foot fifth toe amputation 05/07 -Post op care -path culture pending Insulin-dependent diabetes, uncontrolled, likely secondary to infection- Accu-Cheks before meals and at bedtime with insulin therapy as needed Continue Lantus 50 units subcutaneous twice a day Peripheral neuropathy continue Lyrica Hypertension, stable continue home meds Hyperlipidemia -continue home meds History of bipolar disease and ADHD, stable Continue home medication COPD, stable Monitor, DuoNeb's when necessary for wheezing Sleep apnea, uses CPAP Patient may use CPAP from home Chronic pain -continue Methadon SCDs for DVT prophylaxis follow cultures CM for HHC/Wound care waiting for cultures to determine PO abx for home Hopefully dc 1-2 days D/W RN D/W Dr. Lennon D/W pt. This patient was seen by myself and Dr. 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
--- NOTE | 2016-05-08 09:26 | HHI.FF ---
Face to Face Verification Diagnosis: (1) Cellulitis of fifth toe of right foot (2) Hx MRSA infection Home Health Nursing Order: Medical education Signs/symptoms of disease process Diabetic education Wound care and dressing changes Nursing assessment with vital signs Floral Designer Order: To Evaluate: Support services I have seen patient Delmar Dillard on 05/08/16. My clinical findings support the need for the requested home health care services because: Deconditioned w/ increased weakness I certify that my clinical findings support that this patient is homebound because: Post-op weakness Unsteady gait/balance Need for psychosocial assistance Zulma Singh FACILITY SPECIALIST May 08, 2016 09:26
[2016-05-08] MEDS: HEPARIN SODIUM - SQ 10,000 UNITS/ML VIAL SQ SCH ×2 (09:53→20:22)
[2016-05-08 12:00] VITALS: BP 119/76; PULSE 90; RESP 19; TEMP 95.9; O2SAT 95
--- NOTE | 2016-05-08 13:48 | MP ---
cc: BAILEY SANTIAGO DATE OF SURGERY: 05/07/2016 PREOPERATIVE DIAGNOSIS: Right foot fifth digit osteomyelitis. POSTOPERATIVE DIAGNOSIS: Right foot fifth digit osteomyelitis. OPERATIVE PROCEDURE PERFORMED: Right foot fifth digit filet of toe. SURGEON: Bailey Santiago DPM. CANCER REGISTRAR: None. PATHOLOGY SENT: Right fifth digit. HEMOSTASIS: Pneumatic ankle tourniquet 250 mmHg. ESTIMATED BLOOD LOSS: Less than 10 mL. INJECTABLES: 10 cc of 0.5% Marcaine plain. MATERIALS USED: 3-0 Prolene. COMPLICATIONS: None. INDICATIONS FOR THE PROCEDURE: Mr. Dillard is a 50-year-old diabetic male patient with osteomyelitis of the right fifth digit. As discussed in more detail my consultation, the patient was given options for conservative surgical intervention and opted for surgical amputation at this time. Consent was signed. The procedure was explained. No guarantees were given. DESCRIPTION OF THE PROCEDURE IN DETAIL: Under mild sedation, the patient was brought into the operating room and placed on the operating table in the supine position. A pneumatic ankle tourniquet was placed around the right ankle. The foot was then scrubbed, prepped and draped in the usual aseptic manner. An Esmarch bandage was used to exsanguinate the right lower extremity and attention was directed to the lateral aspect of the fifth digit where there was a 0.75 x 0.75 by a 0.5 cm ulceration probing deep to bone at the proximal phalanx on the dorsal lateral aspect of the fifth digit. Due to the placement of the wound, I had concerns about a standard elliptical incision and opted to perform a full right toe. A semilunar incision was created on the plantar lateral aspect of the wound and deepened through skin and subcutaneous tissue with care being taken to identify and retract any vital neurovascular structures and lengthened in the level of the metatarsophalangeal joint. No purulence was noted; however there was liquefactive necrotic tissue within the underlying wound bed. The metatarsophalangeal joint was disarticulated and a scalpel was used to remove all soft tissue attachments circumferentially from the bone. A similar incision was created on the dorsal medial aspect of the wound so that the bones and wound could be removed from the field in toto. The necrotic tissue was then removed using a rongeur and this was flushed with copious amounts of sterile saline. The tissue was reapproximated and remodeled in order to allow for adequate closure with minimal skin tension. The area was flushed with copious amounts of sterile saline with in the irrigation and then closed with 3-0 Prolene with minimal tension and excellent closure. The foot was then cleansed and dressed with sterile Adaptic, abdominal padding, cast padding and a very light Sudeep bandage. The patient tolerated the procedure and anesthesia well and he will recover in the post-anesthesia care unit for a period of time before being discharged home with written and oral postop instructions. Bailey DAVEY/MILENA /5:07 PM /1:38 PM MTDD
[2016-05-08 16:00] VITALS: BP 108/61; PULSE 64; RESP 18; TEMP 97.6; O2SAT 95
[2016-05-08] MEDS: METHADONE HCL 10 MG TAB PO SCH (16:50)
--- NOTE | 2016-05-08 18:11 | PD.POD ---
Subjective Podiatric Problems S/P right foot 5th toe amputation. Patient states the foot is feeling much better then yesterday. He is hoping to be discharged home soon. He denies any n/ v/f/h/c/sob. Pain score: 2 Past Med/Surg/Social History Social History Smoking Status: Former Smoker Objective Vital Signs Vital Signs Date Time Temp Pulse Resp B/P Pulse Ox O2 Delivery O2 Flow Rate FiO2 05/08/16 17:33 16 05/08/16 16:37 16 05/08/16 16:00 97.6 64 18 108/61 95 05/08/16 12:00 95.9 90 19 119/76 95 05/08/16 09:52 18 05/08/16 08:00 97.7 79 18 95/69 96 05/08/16 04:25 96.7 77 16 101/72 99 05/08/16 00:00 96.6 75 16 107/66 92 05/07/16 20:00 97.4 122 18 109/77 96 05/07/16 18:15 97.5 70 14 115/75 98 Nasal Cannula 2 Coded Allergies: *MDRO Multi-Drug Resistant Organism (Verified Adverse Reaction, Unknown, MRSA, 05/05/16) MRSA (lip wound) - 03/30/16 Exam-Podiatry Remarks Exam deferred due to surgical dressings. No strikethrough. No calf pain. ROM to ankle and remaining digits WNL. Assessment & Plan A/P 1) s/p right 5th toe amputation on 05/07/16 -WBAT in surgical shoe -Keep right foot neutral -Keep dressing clean, dry, and intact -Plan to change dressings tomorrow and if cellulitis has resolved will recommend discharge with PO abx -Pt does not need home health care, all dressing changes to be done by -Call with any questions or concerns Bailey Santana DPM May 08, 2016 18:11
[2016-05-08] MEDS: risperiDONE ODT 2 MG TAB SL SCH (20:22)
[2016-05-08 20:33] VITALS: BP 116/79; PULSE 95; RESP 20; TEMP 97.8; O2SAT 93
[2016-05-09] VITALS: BP 112/71; PULSE 95; RESP 16; TEMP 98.1; O2SAT 91
[2016-05-09] MEDS: VANCOMYCIN INJ 2,000 MG in SODIUM CHLORID 0.9% 500 ML INJ 500 ML IV SCH (02:59)
[2016-05-09] MEDS: PIPERACIL-TAZO 4.5 GM PREMIX 100 ML IV SCH ×2 (02:59→08:03)
[2016-05-09] MEDS: SODIUM CHLOR 0.9% 1000 ML INJ 1,000 ML IV SCH ×2 (03:47→11:26)
[2016-05-09 04:00] VITALS: BP 143/78; PULSE 90; RESP 16; TEMP 96.8; O2SAT 94
[2016-05-09] MEDS: INSULIN ASPART SUPPLEMENTAL SCALE SQ SCH ×2 (05:44→11:16)
[2016-05-09] MEDS: oxyCODONE/ACETAMINOPHEN 5 MG/325 MG TAB PO PRN (06:39)
[2016-05-09 08:00] VITALS: BP 128/85; PULSE 85; RESP 21; TEMP 96.3; O2SAT 96
[2016-05-09] MEDS: DEXTROAMPHETAMINE/AMPHETAMINE 30 MG TAB PO SCH (08:04)
[2016-05-09] MEDS: PANTOPRAZOLE SOD 40 MG DELAYED RELEASE TAB PO SCH (08:05)
[2016-05-09] MEDS: amLODIPine BESYLATE 5 MG TAB PO SCH (08:05)
[2016-05-09] MEDS: METOPROLOL TARTRATE 25 MG TAB PO SCH (08:05)
[2016-05-09] MEDS: FLUoxetine HCL 20 MG CAP PO SCH (08:05)
[2016-05-09] MEDS: LITHIUM CARBONATE 450 MG CONTROLLED RELEASE TAB PO SCH (08:05)
[2016-05-09] MEDS: PREGABALIN 75 MG CAP PO SCH (08:05)
[2016-05-09] MEDS: SPIRONOLACTONE 25 MG TAB PO SCH (08:05)
[2016-05-09] MEDS: FUROSEMIDE 40 MG TAB PO SCH (08:05)
[2016-05-09] MEDS: INSULIN DETEMIR 100 UNITS/ML VIAL SQ SCH (08:07)
[2016-05-09] MEDS: HEPARIN SODIUM - SQ 10,000 UNITS/ML VIAL SQ SCH (08:08)
[2016-05-09] MEDS: MUPIROCIN 2% OINT 22 GM TUBE TOPICAL SCH (08:08)
[2016-05-09] MEDS: SODIUM CHLORIDE 0.9% FLUSH 5 ML FLUSH FLUSH SCH (08:09)
[2016-05-09] MEDS ORDERED: DOXY1CAP91 PO (11:08)
[2016-05-09] MEDS ORDERED: OXYC1TAB63 PO (11:08)
[2016-05-09] MEDS ORDERED: AUGM500T7 PO (11:08)
--- NOTE | 2016-05-09 11:15 | HHI.PR ---
Subjective Remarks s/p right fifth toe amputation 05/07 doing well minimal pain. Pain medications help for breakthrough pain minimal to no erythema on leg no fever no cp no sob anxious to go home Review of system for 10 point system unremarkable Objective Objective Results - Vital Signs Date Time Temp Pulse Resp B/P Pulse Ox O2 Delivery O2 Flow Rate FiO2 05/09/16 08:00 96.3 85 21 128/85 96 05/09/16 04:00 96.8 90 16 143/78 94 05/09/16 00:00 98.1 95 16 112/71 91 05/08/16 20:33 97.8 95 20 116/79 93 05/08/16 17:33 16 05/08/16 16:37 16 05/08/16 16:00 97.6 64 18 108/61 95 05/08/16 12:00 95.9 90 19 119/76 95 I/O 05/08/16 05/08/16 05/08/16 05/09/16 05/09/16 05/09/16 06:59 14:59 22:59 06:59 14:59 22:59 Intake Total 960 ml 480 ml 1535 ml 600 ml Balance 960 ml 480 ml 1535 ml 600 ml Intake Oral 500 ml 480 ml IV Total 460 ml 1535 ml 600 ml # Voids 1 2 # Bowel Movements 0 2 Result Diagram: 05/06/16 0408 05/09/16 0825 Other Results Laboratory Tests Test 05/09/16 08:25 Creatinine 0.84 Estimat Glomerular Filtration 96 Rate Date/Time Procedure Status Source Growth 05/05/16 08:35 Aerobic Blood Culture - Preliminary Resulted Blood Peripheral NO GROWTH IN 4 DAYS 05/05/16 08:35 Anaerobic Blood Culture - Preliminary Resulted Blood Peripheral NO GROWTH IN 4 DAYS Physical Exam Physical Exam GENERAL: This is a well-nourished, well-developed patient, in no apparent distress. SKIN: has a reddened patch to top of scalp from previous injury that is dry, healing well, no exudate. As per patient it is significantly healed and is still healing. There is very minimal to no erythema of the right leg HEAD: Atraumatic. Normocephalic. No temporal or scalp tenderness. EYES: Pupils equal round and reactive. Extraocular motions intact. No scleral icterus. No injection or drainage. ENT: Airway patent. NECK: Trachea midline. No JVD or lymphadenopathy. Supple, nontender, no meningeal signs. CARDIOVASCULAR: Regular rate and rhythm without murmurs, gallops, or rubs. RESPIRATORY: Clear to auscultation. Breath sounds equal bilaterally. No wheezes , rales, or rhonchi. GASTROINTESTINAL: Abdomen soft, non-tender, bulky. Has umbilical and upper mid abdomen hernias, non tender. No hepato-splenomegaly, or palpable masses. No guarding. MUSCULOSKELETAL: Right foot with dressing D/I, skin warm and dry. Left foot/ leg with chronic venous discoloration, pedal pulses 1+ bilaterally No other joint tenderness, effusion, or edema noted. No calf tenderness. Negative Homans sign bilaterally. NEUROLOGICAL: Pt awake, oriented x 3. No focal deficits. Decrease sensation to both feet. Urinary Catheter: No Vascular Central Line Catheter: No A/P Assessment and Plan (1) Cellulitis of fifth toe of right foot (2) Cellulitis of right leg (3) Hyperglycemia due to type 2 diabetes mellitus (4) Hx MRSA infection (5) Hyperlipidemia (6) Peripheral neuropathy (7) Hypertension (8) Bipolar disorder Plan 50-year-old male with significant past medical history of type 2 diabetes, hyperglycemia, peripheral neuropathy, history of MRSA. Patient came to emergency room complaining of a blood-filled blister to the right fifth toe that he's had for the last 2 weeks that opened up and has been draining, positive for chills, no fever. Prior history of MRSA to lip in 2016. -Culture so far no Appreciate podiatry input, options reviewed, pt. is status post surgery Right foot MRI results noted, + osteo -Contact isolation, hx MRSA -S/P right foot fifth toe amputation 05/07 -Post op care -path culture pending Insulin-dependent diabetes, uncontrolled, likely secondary to infection- Accu-Cheks before meals and at bedtime with insulin therapy as needed Continue Lantus 50 units subcutaneous twice a day Peripheral neuropathy continue Lyrica Hypertension, stable continue home meds Hyperlipidemia -continue home meds History of bipolar disease and ADHD, stable Continue home medication COPD, stable Monitor, DuoNeb's when necessary for wheezing Sleep apnea, uses CPAP Patient may use CPAP from home Chronic pain -continue Methadon Will give pain medication for breakthrough pain after surgery SCDs for DVT prophylaxis Plan to discharge him home today to be followed by primary care doctor and podiatry as outpatient D/W RN D/W pt. Jl Lennon MD May 09, 2016 11:15
--- NOTE | 2016-05-09 11:18 | HHI.DS ---
Discharge Summary Admission Date May 05, 2016 at 09:21 Admitting Diagnosis sepsis/right leg cellulitis/diabetic foot ulcer (1) Cellulitis of fifth toe of right foot Diagnosis: Principal (2) Cellulitis of right leg Diagnosis: Principal (3) Hyperglycemia due to type 2 diabetes mellitus Diagnosis: Principal (4) Hx MRSA infection Diagnosis: Principal (5) Hyperlipidemia Diagnosis: Principal (6) Peripheral neuropathy Diagnosis: Principal (7) Hypertension Diagnosis: Principal (8) Bipolar disorder Diagnosis: Principal Brief History This a pleasant 50-year-old male with past medical history of insulin-dependent diabetes, peripheral neuropathy, prior MRSA to a lip lesion on lip last year. Patient presented to the emergency room with history of having two blood filled blisters to the right foot, right great toe and right fifth toe. Indicates that the sore to the right great toe did heal, he did cut off some skin to this area after it healed. rs. The blister to the right fifth toe broke open yesterday and started draining bloody fluid, no odor. He had mild chills, no fevers. Noted that his right leg was swollen with increased redness all the way up to mid calf. He has severe peripheral neuropathy and has decreased sensation. Patient presented to the emergency room for evaluation, X-ray of the right foot showed soft tissue swelling involving the right fifth digit suggestive of probable cellulitis, underlying osteomyelitis is difficult to rule out on the basis of this examination. Patient was admitted because of the cellulitis and possible osteomyelitis. MRI was done showing likely ostial. Reticulocyte consultation was done. Patient had amputation of the pinky toe. She was kept on antibiotic. His cellulitis is significantly improved. As per podiatry can be discharged. As patient is overall stable and good condition plan to discharge him home to be followed by his primary care doctor as outpatient and podiatry as outpatient. CBC/BMP: 05/06/16 0408 05/09/16 0825 Significant Findings Laboratory Tests Test 05/06/16 05/08/16 15:45 03:30 Vancomycin Level Trough 11.3 MCG/ML 13.2 MCG/ML (5.0-10.0) (5.0-10.0) Pt Condition on Discharge: Good Discharge Disposition: Discharge Home Discharge Instructions DIET: Follow Instructions for: Diabetic Diet Activities you can perform: See Additionl Instruction Other Activity Instructions: As per podiatry instruction Follow up Referrals: PCP Follow-up - 1 Week Podiatry - 3-5 Days New Medications: Amoxicillin-Clavulanate (Augmentin) 500-125 mg Tab 500 MG PO BID Infection #10 Ref 0 TAB Doxycycline (Monohydrate) (Doxycycline) 100 Mg Cap 100 MG PO BID infection #10 TAB Oxycodone-Acetaminophen (Oxycodone-Acetaminophen) 5-325 mg Tab 1 TAB PO Q4H PRN PAIN SCALE 6 TO 10 #25 TAB Continued Medications: Amlodipine (Amlodipine) 2.5 Mg Tab 2.5 MG PO DAILY Blood Pressure Management #30 Ref 0 TAB Amphetamine-Dextroamphetamine (Adderall) 30 Mg Tab 30 MG PO BID Avoid late evening doses. Space doses at least 4 to 6 hours if more than once/day dosing. Hyperactivity Control #0 Ref 0 TAB Fluoxetine (Prozac) 20 Mg Cap 60 MG PO DAILY #30 Ref 0 CAP Furosemide (Furosemide) 40 Mg Tab 40 MG PO BID #0 Ref 0 TAB Insulin Aspart Inj (Novolog Inj) 1,000 Unit/10 Ml Vial 0 SQ DIRECTED Sliding Scale as directed. Blood Sugar Management #10 Ref 0 ML Insulin Glargine Inj (Lantus Inj) 1,000 Unit/10 Ml Vial 50 UNITS SQ BID Blood Sugar Management Ref 0 VIAL [place] Carbonate ER ([place] Carbonate ER) 450 Mg Tab 450 MG PO BID Ref 0 TAB Methadone (Methadone) 40 Mg Tab 120 MG PO DAILY #3 Ref 0 TAB Metoprolol Tartrate (Metoprolol Tartrate) 25 Mg Tab 25 MG PO DAILY #30 Ref 0 TAB Omeprazole (Omeprazole) 40 Mg Cap 40 MG PO DAILY #30 Ref 0 CAP Pregabalin (Lyrica) 75 Mg Cap 75 MG PO BID #0 Ref 0 CAP Risperidone Odt (Risperidone M-Tab) 2 Mg Tab 2 MG SL HS #30 Ref 0 TAB Spironolactone (Spironolactone) 25 Mg Tab 25 MG PO DAILY #30 Ref 0 TAB Jl Lennon MD May 09, 2016 11:18
--- NOTE | 2016-05-09 11:49 | PD.POD ---
Subjective Podiatric Problems S/P right foot 5th toe amputation. Patient states he feels ready for discharge today. His sister is an RN and she is going to stay with him for a few days. He denies any n/v/f/h/c/sob. Pain score: 2 Past Med/Surg/Social History Social History Smoking Status: Former Smoker Objective Vital Signs Vital Signs Date Time Temp Pulse Resp B/P Pulse Ox O2 Delivery O2 Flow Rate FiO2 05/09/16 08:00 96.3 85 21 128/85 96 05/09/16 04:00 96.8 90 16 143/78 94 05/09/16 00:00 98.1 95 16 112/71 91 05/08/16 20:33 97.8 95 20 116/79 93 05/08/16 17:33 16 05/08/16 16:37 16 05/08/16 16:00 97.6 64 18 108/61 95 05/08/16 12:00 95.9 90 19 119/76 95 Coded Allergies: *MDRO Multi-Drug Resistant Organism (Verified Adverse Reaction, Unknown, MRSA, 05/05/16) MRSA (lip wound) - 03/30/16 Exam-Podiatry Remarks Right foot dressing change: incision with very mild dehisence centrally but all sutures intact, no drainage, slight faint cristian wound erythema, no malodor. Pre ulcerative lesions remain unchanged. Assessment & Plan A/P 1) s/p right 5th toe amputation on 05/07/16 -WBAT in surgical shoe -Keep right foot neutral -Keep dressing clean, dry, and intact -Pt does not need home health care, all dressing changes to be done by -Being d/c'd with augmentin and doxy -Follow up outpt in office -Call with any questions or concerns Bailey Santana DPM May 09, 2016 11:49
[2016-05-09 12:00] VITALS: BP 125/83; PULSE 82; RESP 18; TEMP 95.7; O2SAT 96
== END 2016-05-09 13:46 | disposition home or self-care (01) | DRG 617 ==
LOC: NEPE 06:12 → NEDA 09:21 → NEDH 05-06 01:09 → N05A 05-06 14:52
PROVIDERS: ADMIT Specialist; ATTEND Specialist
PROC: 0Y6X0Z0 Detachment at Right 5th Toe, Complete, Open Approach (ICD-10-PCS; principal; 2016-05-07 15:54)
DX: E11.69 Type 2 diabetes mellitus with other specified complication (principal); M86.8X7 Other osteomyelitis, ankle and foot; E11.40 Type 2 diabetes mellitus with diabetic neuropathy, unspecified; Z99.81 Dependence on supplemental oxygen; L03.115 Cellulitis of right lower limb; E11.65 Type 2 diabetes mellitus with hyperglycemia; L03.031 Cellulitis of right toe; E11.621 Type 2 diabetes mellitus with foot ulcer; G47.30 Sleep apnea, unspecified; J44.9 Chronic obstructive pulmonary disease, unspecified; F31.9 Bipolar disorder, unspecified; E78.5 Hyperlipidemia, unspecified; G89.29 Other chronic pain; I10 Essential (primary) hypertension; F90.9 Attention-deficit hyperactivity disorder, unspecified type; L97.519 Non-pressure chronic ulcer of other part of right foot with unspecified severity; Z79.4 Long term (current) use of insulin; Z86.14 Personal history of Methicillin resistant Staphylococcus aureus infection; Z87.891 Personal history of nicotine dependence; Z78.9 Other specified health status
CPT/HCPCS: 73630; 73720; 80048; 80053; 80202; 82565; 82948; 83605; 85025; 87040; 88305; 88311; 93005; 93971; 96365; A9579; J1644; J1815; J2250; J2405; J2543; J3010; J3370; J7030; J7040; J7050; L3260